=== PATIENT | female | born 1980 | race Caucasian/White ===

== ENCOUNTER 2022-09-09 19:03 | Inpatient (IN) | payer BC ==
[2022-09-09] MEDS: DEXTROSE 5%-LACTATED RINGERS 1,000 ML IV SCH (20:15)
[2022-09-09 20:42] LABS: BASO % 0.3 % (0-2.0); EOS % 0.9 % (0-4.5); HEMATOCRIT 36.1 % (32.4-45.2); HEMOGLOBIN 11.7 GM/dL (10.7-15.3); LYMPH % 23.9 % (8-40); MCHC 32.3 g/dl (32.0-36.0); MEAN CELL VOLUME 80.7 fl (80-96); MEAN PLT VOLUME 9.9 fl (7.5-11.1); MONO % 10.8 % (3.8-10.2); NEUT % 64.1 % (42.8-82.8); PLATELET COUNT 209 10^3/uL (134-434); RBC 4.48 M/mm3 (3.60-5.2); RDW 15.2 % (11.6-15.6)
[2022-09-09 20:51] LABS: INR 0.92 (0.83-1.09); PROTHROMBIN TIME (PATIENT) 10.6 SEC (9.7-13.0)
[2022-09-09 20:54] LABS: ACTIVATED PTT 24.5 SECONDS (25.2-36.5)
[2022-09-09 21:03] LABS: CALCIUM 8.9 mg/dL (8.5-10.1)
[2022-09-09 21:04] LABS: BLOOD UREA NITROGEN 8.1 mg/dL (7-18)
[2022-09-09 21:07] LABS: CREATININE 0.5 mg/dL (0.55-1.3)
[2022-09-09] MEDS: MISOPROSTOL 100 MCG TABLET PV SCH (21:35)
[2022-09-09 21:38] VITALS: BMI 25.8
[2022-09-10] MEDS: MISOPROSTOL 100 MCG TABLET PV SCH ×2 (02:19→23:34)
[2022-09-10] MEDS: DEXTROSE 5%-LACTATED RINGERS 1,000 ML IV SCH ×2 (03:47→13:31)
[2022-09-10] MEDS ORDERED: morphine SULFATE 4 MG/ML VIAL IVPB ONE ×2 (04:11→09:19)
[2022-09-10] MEDS ORDERED: morphine CARPU-JECT 8 MG/1 ML DISP.SYRIN IVPB ONE (04:11)
[2022-09-10] MEDS ORDERED: morphine SULFATE 4 MG/ML VIAL ONE ×2 (04:15→09:26)
[2022-09-10] MEDS ORDERED: OXYTOCIN 30 UNITS in 0.9% NS 30 UNIT/500 ML INFUS.BAG IVPB ONE (12:11)
[2022-09-10] MEDS ORDERED: OXYTOCIN 30 UNITS in 0.9% NS 30 UNIT/500 ML INFUS.BAG IVPB SCH (12:15)
[2022-09-10] MEDS ORDERED: FENTANYL/BUPIVACAINE/NS/PF - PCEA - 50 ML DISP.SYRIN EP ONE (12:23)
[2022-09-10] MEDS ORDERED: NALOXONE HCL 0.4 MG/ML VIAL IVPUSH PRN (13:26)
[2022-09-10] MEDS ORDERED: FENTANYL/BUPIVACAINE/NS/PF - PCEA - 50 ML DISP.SYRIN EP SCH (13:30)
[2022-09-10] MEDS ORDERED: OXYTOCIN 20 UNITS in 0.9% NS 20 UNIT/1,000 ML INFUS.BAG IV ONE (14:24)
[2022-09-10] MEDS ORDERED: BENZOCAINE 20% 57 GM BOTTLE TP PRN (16:34)
[2022-09-10] MEDS ORDERED: BISACODYL 10 MG SUPP.RECT RC PRN (16:34)
[2022-09-10] MEDS ORDERED: BENZOCAINE 28 GM HEMORRHOIDAL OINTMENT TP PRN (16:34)
[2022-09-10] MEDS ORDERED: ACETAMINOPHEN 325 MG TABLET (FP) PO PRN (16:34)
[2022-09-10] MEDS ORDERED: WITCH HAZEL 50% (TUCKS) 40 PAD/JAR PAD TP PRN (16:34)
[2022-09-10] MEDS ORDERED: OXYTOCIN 20 UNITS in 0.9% NS 20 UNIT/1,000 ML INFUS.BAG IV SCH (16:45)
[2022-09-10 17:25] LABS: CORD BASE EXCESS -11.5 mmol/L (0-2); CORD BASE EXCESS -8.8 mmol/L (0-2); CORD HCO3 16.2 mmHg (20-29); CORD HCO3 16.9 mmHg (20-29); CORD PCO2 36.3 mmHg (30-78); CORD PCO2 42.9 mmHg (30-78); CORD pH 7.196 (7.14-7.44); CORD pH 7.287 (7.14-7.44)
[2022-09-10] MEDS: FERROUS SO4 325 MG TABLET (FP) PO SCH (18:32)
[2022-09-10] MEDS ORDERED: FERROUS SO4 325 MG TABLET (FP) ONE (18:48)
[2022-09-11] MEDS: IBUPROFEN 600 MG TABLET (FP) PO PRN ×4 (06:27→23:08)
[2022-09-11 09:08] LABS: BASO % 0.2 % (0-2.0); EOS % 0.8 % (0-4.5); HEMATOCRIT 28.1 % (32.4-45.2); HEMOGLOBIN 9.1 GM/dL (10.7-15.3); LYMPH % 14.5 % (8-40); MCH 26.4 pg (25.7-33.7); MCHC 32.5 g/dl (32.0-36.0); MEAN CELL VOLUME 81.3 fl (80-96); MONO % 7.7 % (3.8-10.2); NEUT % 76.8 % (42.8-82.8); PLATELET COUNT 169 10^3/uL (134-434); RBC 3.46 M/mm3 (3.60-5.2); RDW 15.1 % (11.6-15.6); WHITE BLOOD COUNT 9.9 K/mm3 (4.0-10.0)
[2022-09-11] MEDS: FERROUS SO4 325 MG TABLET (FP) PO SCH ×2 (09:30→18:11)
[2022-09-11] MEDS: PRENATAL VITAMINS W/ FOLIC ACID TABLET (FP) PO SCH (10:50)
[2022-09-11] MEDS ORDERED: SENNOSIDES/DOCUSATE COMBO (SENNA PLUS) TABLET (UD) PO PRN (22:00)
[2022-09-12] MEDS: IBUPROFEN 600 MG TABLET (FP) PO PRN (08:26)
[2022-09-12] MEDS: FERROUS SO4 325 MG TABLET (FP) PO SCH (08:27)
[2022-09-12] MEDS: PRENATAL VITAMINS W/ FOLIC ACID TABLET (FP) PO SCH (09:52)
[2022-09-12 10:24] VITALS: BP 110/75; PULSE 80; RESP 16; TEMP 98
== END 2022-09-12 13:00 | disposition home or self-care (01) | DRG 807 ==
LOC: JLDR 19:03 → J3W 09-10 20:10
PROVIDERS: ADMIT Obstetrics & Gynecology Maternal & Fetal Medicine; ATTEND Obstetrics & Gynecology Maternal & Fetal Medicine
PROC: 10E0XZZ Delivery of Products of Conception, External Approach (ICD-10-PCS; principal; 2022-09-10)
PROC: 3E033VJ Introduction of Other Hormone into Peripheral Vein, Percutaneous Approach (ICD-10-PCS; 2022-09-10)
DX: O98.52 Other viral diseases complicating childbirth (principal); Z37.0 Single live birth; B00.9 Herpesviral infection, unspecified; O99.344 Other mental disorders complicating childbirth; F39 Unspecified mood [affective] disorder; Z3A.39 39 weeks gestation of pregnancy; Z87.19 Personal history of other diseases of the digestive system
CPT/HCPCS: 36415; 36600; 59409; 80048; 82803; 85025; 85610; 85730; 86780; 86850; 86900; 86901; C9803-CS; U0003; U0005